=== PATIENT | male | born 1975 | race Two or more races ===

== ENCOUNTER → 2018-08-29 | Emergency (ER) | payer OTHER ==
[~2018-08-29] VITALS: Ht 177.8 cm; Wt 69.9 kg
[~2018-08-29] MED LIST: CIPRO500 MG PO; CRESTOR20 MG; FLAGYL500MG PO; LEVSIN/SL0.125 MG SL; PEPCID40 MG PO; ULTRACET PO
== END ==
LOC: ER 01:13
DX: K80.20 Calculus of gallbladder without cholecystitis without obstruction (principal)

== ENCOUNTER 2018-10-02 07:35 | Day surgery (SDC) | payer OTHER | END 2018-10-02 16:20 | disposition home or self-care (01) | LOC: CIR.AMB 07:35 | DX: K80.10 Calculus of gallbladder with chronic cholecystitis without obstruction (principal) ==